=== PATIENT | female | born 1970 | race Caucasian/White ===

== ENCOUNTER 2016-12-19 12:41 | Day surgery (SDC) | payer OTHER ==
[~2016-12-19 12:41] MED LIST: IBUPROFEN200 M2 PO
== END 2016-12-19 15:52 ==
LOC: SHSB 12:41
PROC: 0TJB8ZZ Inspection of Bladder, Via Natural or Artificial Opening Endoscopic (ICD-10-PCS; principal; 2016-12-19)
DX: N39.3 Stress incontinence (female) (male) (principal); Z79.899 Other long term (current) drug therapy; Z88.8 Allergy status to other drugs, medicaments and biological substances